=== PATIENT | female | born 1995 | race Caucasian/White ===

== ENCOUNTER 2023-03-28 21:52 | Emergency (ER) | payer MEDICAID | END 2023-03-28 22:04 | disposition left against medical advice (07) | LOC: EMS 21:56 | DX: Z53.21 Procedure and treatment not carried out due to patient leaving prior to being seen by health care provider (principal) ==

== ENCOUNTER 2023-03-29 23:54 | Emergency (ER) | payer MEDICAID ==
[~2023-03-29] VITALS: Ht 162.6 cm; Wt 65.3 kg
[2023-03-29 23:54] VITALS: BP 121/73; PULSE 90; RESP 18; TEMP 97.7
[2023-03-30] MEDS ORDERED: ACETAMINOPHEN 500 MG TABLET PO ONE (00:30)
[2023-03-30] MEDS ORDERED: AMOX TR/POT CLAV 875 MG/125 MG TABLET PO ONE (00:30)
[2023-03-30] MEDS ORDERED: ACET-3385 PO (00:33)
[2023-03-30] MEDS ORDERED: AMOX1TAB16 PO (00:33)
== END 2023-03-30 00:48 | disposition home or self-care (01) ==
LOC: EMS 23:54
DX: O26.892 Other specified pregnancy related conditions, second trimester (principal); K08.89 Other specified disorders of teeth and supporting structures; Z3A.16 16 weeks gestation of pregnancy
CPT/HCPCS: 99283